=== PATIENT | male | born 1965 | race Caucasian/White ===

== ENCOUNTER 2016-12-13 15:06 | Inpatient (IN) | payer OTHER ==
[~2016-12-13] VITALS: Ht 177.8 cm; Wt 106.8 kg
--- NOTE | 2016-12-13 18:13 | MH ---
cc: JOSE ANGEL BROWN DATE OF ADMISSION 12/22/2016 ADMISSION DIAGNOSIS Severe osteoarthritis of the right knee, varus deformity right knee, patellofemoral disorder right knee, pain right knee. HISTORY The patient is a 51-year-old white male who has had a rather lengthy history of pain involving his right knee. His history extends back almost 20 years when he noted the onset of his symptoms unrelated to trauma or stress. He had undergone previous orthopedic evaluation and over a 10-year interval of time underwent at least four arthroscopic procedures with only temporary relief being noted. He had also received previous cortisone injections that did not prove to be of any long-term benefit. He tried to conform to an exercise program which included riding a bicycle but with the passage of time he became progressively more symptomatic with pain. He had been taking ibuprofen on a daily basis with limited benefit. He initially presented to the undersigned physician in 2011 and at that time his x-ray studies did reveal [id number] apposition about the medial compartment associated with hypertrophic bony reaction involving the medial femoral condyle. Findings and treatment options were reviewed at that time. The patient was encouraged to continue with conservative management being prescribed Ultram to be taken for pain management. He was to be fitted for a medial offloading brace and was initiated into a course of physical therapy while being followed on an outpatient basis. 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 He also completed his course of physical therapy and indicated his intent to postpone any form of operative treatment as long as he was able to tolerate his symptoms. Over the following few years he continued to be followed on an outpatient basis. Subsequently being prescribed tramadol for additional pain management. He returned to the office in August of 2015 reporting some slight progression of his symptoms about his knee, but was not quite ready to commit to any operative treatment. He returned to the office in November of this year indicating that with the passage of time he did become increasingly more symptomatic with pain that began to interfere with all forms of weightbearing activities. He was having difficulty sleeping through the night because of his symptoms and was taking both tramadol and ibuprofen for pain management. He felt that he had reached a point in time where he was ready to consider more definitive course of treatment. His x-ray studies revealed obvious degenerative change with [id number] apposition about the medial compartment associated with a varus deformity of at least 15 degrees magnitude and secondary involvement of the patellofemoral articulation. Findings and treatment options were reviewed. The involvement of total knee arthroplasty was outlined in detail for which the patient indicated his full understanding and expressed his desire to proceed accordingly. In compliance with his wishes he is currently being admitted in order that the above be accomplished. PAST MEDICAL AND SURGICAL HISTORY His past medical history, hospitalizations and surgeries in addition to multiple arthroscopic procedures of his right knee as described have included: 1. An anterior cervical diskectomy and fusion followed by a revision for failure of the fusion. 2. He has also undergone lithotripsy x3. His medical illnesses include: 1. Hypertension for which he takes Toprol XL 100 mg daily, lisinopril 10 - 12.5 daily. 2. He also takes ibuprofen 800 mg twice daily. 3. Tramadol 50 mg p.r.n. 4. Nasonex 80 mcg two sprays daily. 5. A multivitamin tablet daily. 6. Vitamin C 1000 mg daily. 7. Echinacea twice daily. 8. And vitamin B one daily. ALLERGIES The patient denies any known drug allergies. REVIEW OF SYSTEMS His review of systems, he wears glasses for reading purposes. Denies headache, seizure or syncope. He has occasional sinus congestion but no epistaxis. Auditory acuity intact. No tinnitus. No bleeding gums or dysphagia. Denies cough, shortness of breath or tuberculosis. He has had a history of pneumonia. No angina or heart disease. He is medically managed for hypertension. His appetite is good. Bowel movements are regular. No hepatitis, gallbladder disease, ulcers or hemorrhoids. No urinary tract infection. He has had a history of recurrent kidney stones status post lithotripsy. No prostate disease. No history of fractures. He denies history of psychiatric illness. His remaining review of systems is unremarkable and noncontributory. FAMILY HISTORY 14 years, 52 years of age. She has a history of fibromyalgia, chronic fatigue syndrome, Angelica-Molina and status post cervical fusion; otherwise in good health. One son and one daughter indicated to be in good health. Family history is positive for hypertension, diabetes, heart disease and lung cancer. 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 He completed a high school education with college credits thereafter. He denies active use of tobacco for over 14 years but had been at least a one-pack per day user for more than 20 years prior to that time. Ethanol consumption in a social and limited basis. PHYSICAL EXAMINATION VITAL SIGNS: Height 5 feet 10 inches, weight 238 pounds. GENERAL: An alert, oriented and responsive 51-year-old white male who sits quietly upon examination table with no obvious distress. HEAD, EYES, EARS, NOSE, AND THROAT: Pupils are equally round and reactive to light. Extraocular movements full. Sclerae clear. External nares clear. External auditory canals clear. Edentulous in the maxillary distribution. Semi edentulous in the mandibular distribution. Mucous membranes pink and moist. Pharynx clear. NECK: Supple. Active range of motion with no appreciable discomfort. A well-healed surgical wound anteriorly consistent with prior history of surgery. Carotid pulse palpable bilaterally. Trachea midline. Thyroid without enlargement. LUNGS: Clear to auscultation and percussion. No CVA tenderness. No discomfort throughout the dorsal lumbar spine. HEART: Regular rhythm. No murmur or gallop. ABDOMEN: Soft, nontender. Bowel sounds present. RECTAL: Per primary care physician. EXTREMITIES: Right knee there is no obvious swelling or effusion. Medial joint line tenderness without palpable deformity, varus orientation. Apprehension and compression sign negative. Limited mobility in the 100+ degree range of flexion with crepitation elicited. No collateral ligamentous instability. Sourav test and drawer sign negative. Pivot shift and Shu sign positive for medial compartment pain. Straight-leg raising unremarkable at 80 degrees. Satisfactory mobility of the right hip with no associated pain. Antalgic gait. NEUROLOGIC: Cranial nerves II-XII grossly intact. IMPRESSION Severe osteoarthritis right knee, varus deformity right knee, patellofemoral disorder right knee, pain right knee. PLAN Right total knee arthroplasty. The nature of the planned surgical procedure, the potential complications and risks associated, the expectations of surgery and the consent form were thoroughly reviewed with the patient in the presence of his prior to admission to the hospital. Conrad has indicated his full understanding regarding all of the above and given consent to proceed with treatment as outlined. Medical evaluation and clearance for surgery will be completed by his primary care physician Dr. Rodolfo Monsalve. MD PRECIOUS Guzman/JAY /5:21 PM /5:53 PM
[2016-12-14] MEDS ORDERED: IBUP800T23 PO (16:45)
[2016-12-14] MEDS ORDERED: VITA500T4 PO (16:45)
[2016-12-14] MEDS ORDERED: ECHI500C PO (16:45)
[2016-12-14] MEDS ORDERED: LISI10TA PO (16:45)
[2016-12-14] MEDS ORDERED: LACTCAP8 PO (16:45)
[2016-12-14] MEDS ORDERED: MULT-135 PO (16:45)
[2016-12-14] MEDS ORDERED: TRAM50TA PO (16:45)
[2016-12-14] MEDS ORDERED: BECL80AE NASAL (16:45)
[2016-12-14] MEDS ORDERED: TOPR100T PO (16:45)
[2016-12-14] MEDS ORDERED: VITA10007 PO (16:46)
[2016-12-22] MEDS ORDERED: TRANEXAMIC ACID 1 GM POST-OP IV SCH ×2 (07:30)
[2016-12-22] MEDS ORDERED: INSULIN HUMAN REGULAR 1,000 UNITS/10 ML VIAL SQ PRN (07:30)
[2016-12-22] MEDS ORDERED: LACTATED RINGER'S 1000 ML IV PRN (07:30)
[2016-12-22] MEDS: POVIDONE IODINE 7.5% SCRUB 118 ML BOTTLE TOPICAL SCH (07:30)
[2016-12-22] MEDS ORDERED: CHLORHEXIDINE GLUCONATE 2 % 1 PACK (2 CLOTHS) TOPICAL PRN (07:30)
[2016-12-22] MEDS ORDERED: ceFAZolin 2 GM PREMIX 50 ML IV SCH (07:30)
[2016-12-22] MEDS ORDERED: SODIUM CHLORID 0.9% 500 ML IV PRN (07:30)
[2016-12-22] MEDS ORDERED: TRANEXAMIC ACID 1 GM PRIOR TO PROCEDURE IV SCH ×2 (07:30)
[2016-12-22] MEDS ORDERED: METOPROLOL TARTRATE 25 MG TAB PO PRN (07:30)
[2016-12-22] MEDS ORDERED: POVIDONE IODINE 5% (ANTISEPSIS KIT) 4 APPLICATIONS EACH NARE PRN (07:30)
[2016-12-22 08:15] VITALS: BP 134/74; PULSE 72; RESP 16; TEMP 99; O2SAT 98
[2016-12-22] MEDS ORDERED: ceFAZolin INJ 1,000 MG VIAL ONE (09:07)
[2016-12-22] MEDS ORDERED: APREPITANT 40 MG CAP ONE (09:08)
[2016-12-22] MEDS ORDERED: MIDAZOLAM HCL 2 MG/2 ML VIAL ONE ×2 (10:03→12:50)
[2016-12-22] MEDS ORDERED: ePHEDrine/NS 25 MG/5 ML SYR IV ONE (12:00)
[2016-12-22] MEDS ORDERED: PHENYLEPH/NS 1000 MCG/10 ML SYR IV ONE (12:00)
[2016-12-22] MEDS ORDERED: ONDANSETRON HCL 4 MG/2 ML VIAL IV PUSH ONE (12:00)
[2016-12-22] MEDS ORDERED: PROPOFOL 200 MG/20 ML AMP IV ONE (12:00)
[2016-12-22] MEDS ORDERED: DO NOT ADM ANY ANTICOAGULANT DRUGS PRN (12:44)
[2016-12-22] MEDS ORDERED: fentaNYL CITRATE 250 MCG/5 ML AMP ONE (12:50)
[2016-12-22] MEDS: DEXT 5%-NACL 0.45% 1000 ML INJ 1,000 ML IV SCH ×2 (12:55→22:00)
[2016-12-22] MEDS ORDERED: BISACODYL 10 MG SUPP PR PRN (13:00)
[2016-12-22] MEDS ORDERED: ZOLPIDEM TARTRATE 5 MG TAB PO PRN (13:00)
[2016-12-22] MEDS ORDERED: Post-op Orders (for Pharmacy) MISC XX ONE (13:00)
[2016-12-22] MEDS ORDERED: diphenhydrAMINE HCL 25 MG CAP PO PRN (13:00)
[2016-12-22] MEDS ORDERED: TRANEXAMIC ACID INJ 1,000 MG in SODIUM CHLORIDE 0.9% INJ 100 ML IV SCH (13:00)
[2016-12-22] MEDS ORDERED: SODIUM CHLORIDE 0.9% FLUSH 5 ML FLUSH IVF PRN (13:00)
[2016-12-22] MEDS ORDERED: NALOXONE HCL 0.4 MG/ML AMP IV PRN (13:00)
[2016-12-22] MEDS ORDERED: ACETAMINOPHEN/HYDROcodone 325 MG/5 MG TAB PO PRN (13:00)
[2016-12-22] MEDS ORDERED: DOCUSATE SODIUM 100 MG CAP PO PRN (13:00)
[2016-12-22] MEDS ORDERED: ACETAMINOPHEN 325 MG TAB PO PRN (13:00)
[2016-12-22] MEDS ORDERED: *MEPERIDINE 25 MG INJ VIAL PERIprocedural Use ONLY ONE (13:05)
[2016-12-22] MEDS ORDERED: MISCELLANEOUS PHARMACY INFORMATION XX ONE (14:00)
[2016-12-22] MEDS: PCA - TOTAL MG MORPHINE DELIVERED PER SHIFT SCH ×2 (14:00→22:00)
[2016-12-22] MEDS: MORPHINE SULFATE 30 MG/30 ML PCA IV SCH ×2 (14:14→18:42)
[2016-12-22] MEDS ORDERED: *HYDROmorphone PF 1 MG VIAL PERIprocedural Use ONLY ONE (14:19)
--- NOTE | 2016-12-22 14:25 | RADRPT ---
EXAM DATE/TIME: 12/22/2016 14:27 [facility] COMPARISON: No previous studies available for comparison. INDICATIONS : Post-op total right knee arthroplasty. MEDICAL HISTORY : Hypertension. SURGICAL HISTORY : Fusion, cervical. Arthroscopy. ENCOUNTER: Initial ACUITY: 1 day PAIN SCORE: 8/10 LOCATION: Right knee. FINDINGS: AP and lateral views of the knee following arthroplasty reveals a prosthesis in anatomic alignment. F racture is not appreciated. Surgical drain is evident CONCLUSION: Status post total knee arthroplasty. Kenneth Alfaro MD FACR Board Certified Radiologist. This report was verified electronically.
[2016-12-22] MEDS: ACETAMINOPHEN/HYDROcodone 325 MG/5 MG TAB PO PRN (15:00)
[2016-12-22] MEDS ORDERED: ENALAPRILAT 1.25 MG/ML VIAL IV PUSH PRN (17:45)
--- NOTE | 2016-12-22 17:47 | PD.CONS ---
HPI Service [facility] Hospitalists Consult Requested By Dr. Carney Reason for Consult medical management Primary Care Physician Unknown Diagnoses: History of Present Illness Patient is a 51-year-old male with past medical history of hypertension, nephrolithiasis is admitted under the orthopedic surgery service as he is postop day 0 from a right total knee arthroplasty. Patient tells me that she he had severe arthritic osteoarthritis and tried conservative management for many years and finally opted for surgical intervention. Currently pain is controlled. He denies any chest pain, shortness of breath, sore throat or runny nose, nausea vomiting, abdominal pain Hospitalist service was consulted for medical management. Review of Systems Template review of systems negative except for those mentioned in the history of present illness. Past Family Social History Allergies: Coded Allergies: No Known Allergies (Verified , 12/22/16) Past Medical History Hypertension, nephrolithiasis. Past Surgical History Right total knee arthroplasty, 3 lithotripsy, neck surgery Reported Medications Reported Meds & Active Scripts Active Reported Vitamin C (Ascorbic Acid) 1,000 Mg Tab 1,000 Mg PO Probiotic (Lactobacillus Acidophilus) 1 Cap Cap 1 Cap PO DAILY Vitamin B-12 (Cyanocobalamin) 500 Mcg Tab 500 Mcg PO DAILY Echinacea 500 Mg Cap 1,520 Mg PO DAILY Multi Vitamin (Multiple Vitamin) 1 Tab Tab 1 Tab PO DAILY Tramadol (Tramadol HCl) 50 Mg Tab 50 Mg PO Q4H PRN Ibuprofen 800 Mg Tab 800 Mg PO DAILY Qnasl Nasal (Beclomethasone Nasal) 80 Mcg/Act Aero 2 [place] NASAL DAILY To each nostril. Lisinopril-Hctz 10-12.5 Mg Tab 1 Tab PO DAILY Toprol XL (Metoprolol Succinate) 100 Mg Tab 100 Mg PO DAILY Family History Mother has heart valve problems. Father from lung cancer Social History He used to smoke cigarettes for 20+ years however he quit 14 years ago. Denies any illegal drug use. Admits to occasional alcohol intake. Physical Exam Vital Signs Vital Signs Date Time Temp Pulse Resp B/P Pulse Ox O2 Delivery O2 Flow Rate FiO2 12/22/16 14:30 84 16 128/79 97 Nasal Cannula 2 12/22/16 14:14 16 12/22/16 13:30 83 16 123/82 97 Nasal Cannula 2 12/22/16 13:15 85 16 128/77 96 Nasal Cannula 2 12/22/16 13:00 81 16 131/84 98 Nasal Cannula 2 12/22/16 12:45 97.1 81 16 145/77 95 Nasal Cannula 2 12/22/16 08:15 99.0 72 16 134/74 98 Physical Exam GENERAL: This is a well-nourished, well-developed patient, in no apparent distress. SKIN: No rashes, ecchymoses or lesions. Cool and dry. HEAD: Atraumatic. Normocephalic. No temporal or scalp tenderness. EYES: Pupils equal round and reactive. Extraocular motions intact. No scleral icterus. No injection or drainage. ENT: Nose without drainage. Throat without erythema, tonsillar hypertrophy or exudate. Uvula midline. Airway patent. NECK: Trachea midline. No JVD or lymphadenopathy. Supple, nontender, no meningeal signs. CARDIOVASCULAR: Regular rate and rhythm without murmurs. RESPIRATORY: Clear to auscultation. Breath sounds equal bilaterally. No wheezes. GASTROINTESTINAL: Abdomen soft, non-tender, nondistended. No guarding. MUSCULOSKELETAL: Extremities without edema. Splint/dressing over the right knee in place. Drain in place. Patient is able to wiggle his toes, sensation is intact. NEUROLOGICAL: Awake and alert. Cranial nerves II through XII intact. Motor and sensory grossly within normal limits except for the right lower extremity. Normal speech Laboratory Laboratory Tests Test 12/22/16 08:20 Blood Type A POSITIVE Antibody Screen NEGATIVE Blood Bank Comment Imaging Last Impressions Knee X-Ray 12/22/16 1255 Signed Impressions: Service Date/Time: Thursday, December 22, 2016 14:27 - CONCLUSION: Status post total knee arthroplasty. Kenneth Alfaro MD Assessment and Plan Assessment and Plan Right total knee arthroplasty postoperative day 0. Anticoagulation, rehabilitation, antibiotics, pain management per orthopedic surgery. Added miralax/doug-colace prn for bowel regimen. Hypertension: Patient's home medications have been resumed with holding parameters. I'll add Vasotec when necessary for blood pressures greater than 160/90. heart healthy diet Hx of nephrolithiasis: Stable DVT proph: xarelto Thank you for allowing me to take part of 's care, I will continue to follow Code Status full Discussed Condition With patient and family Brittney Ely MD Dec 22, 2016 17:47
[2016-12-22 19:58] VITALS: BP 119/79; PULSE 74; RESP 17; TEMP 96.4; O2SAT 97
[2016-12-22 20:06] VITALS: BP 195/101; PULSE 66; RESP 16; TEMP 98.2; O2SAT 99
[2016-12-22] MEDS: ONDANSETRON HCL 4 MG/2 ML VIAL IVP PRN (20:16)
[2016-12-22] MEDS: SODIUM CHLORIDE 0.9% FLUSH 5 ML FLUSH IVF SCH (20:16)
[2016-12-23] VITALS (7 sets, daily range): BP systolic 124–143; BP diastolic 62–86; PULSE 77–85; RESP 17–20; TEMP 96.9–98.6; O2SAT 94–98
[2016-12-23] MEDS ORDERED: METOCLOPRAMIDE HCL 10 MG/2 ML VIAL IV PUSH ONE
[2016-12-23] MEDS: DEXT 5%-NACL 0.45% 1000 ML INJ 1,000 ML IV SCH ×3 (00:40→21:28)
[2016-12-23 05:17] LABS: HEMATOCRIT 37.4 % (39.0-51.0); REVIEW FLAG FINAL
[2016-12-23] MEDS: MORPHINE SULFATE 30 MG/30 ML PCA IV SCH ×2 (05:44→14:00)
[2016-12-23] MEDS: PCA - TOTAL MG MORPHINE DELIVERED PER SHIFT SCH ×3 (05:44→21:27)
[2016-12-23] MEDS ORDERED: ASPI325T PO (06:20)
[2016-12-23] MEDS ORDERED: HYDR-3516 PO (06:20)
--- NOTE | 2016-12-23 06:21 | HHI.FF ---
Face to Face Verification Diagnosis: (1) DJD (degenerative joint disease) of knee Physical Therapy Gait training Knee: Total knee, Protocol: Right, Full weight bearing Right LE Weight Bearing: WB as tolerated Right LE Range of Motion: Active ROM Nursing Dressing Changes: Daily dressing change I have seen patient Ken Corbin on 12/23/16. My clinical findings support the need for the requested home health care services because: Limited ability to care for self High risk of falls I certify that my clinical findings support that this patient is homebound because: Post-op weakness Unsteady gait/balance Unsafe to leave home unassisted Omar Fairchild MD Dec 23, 2016 06:21
[2016-12-23] MEDS ORDERED: WALKER WHEELS/F1 MIS (06:23)
[2016-12-23] MEDS: POVIDONE IODINE 7.5% SCRUB 118 ML BOTTLE TOPICAL SCH (06:30)
[2016-12-23] MEDS: MAGNESIUM HYDROXIDE SUSP 30 ML CUP PO PRN (07:54)
[2016-12-23] MEDS: METOPROLOL SUCCINATE 50 MG EXTENDED RELEASE TAB PO SCH (07:54)
[2016-12-23] MEDS: DOCUSATE SODIUM 50 MG/SENNA 8.6 MG TAB PO PRN (07:55)
[2016-12-23] MEDS: POLYETHYLENE GLYCOL 17 GM PKG PO SCH (07:57)
[2016-12-23] MEDS: ACETAMINOPHEN/HYDROcodone 325 MG/5 MG TAB PO PRN ×3 (07:57→16:31)
[2016-12-23] MEDS: SODIUM CHLORIDE 0.9% FLUSH 5 ML FLUSH IVF SCH ×2 (07:58→21:00)
[2016-12-23] MEDS ORDERED: LISI10TA3 PO (08:11)
[2016-12-23] MEDS ORDERED: LISINOPRIL 10 MG TAB PO SCH (09:00)
[2016-12-23] MEDS ORDERED: HYDROCHLOROTHIAZIDE 25 MG TAB PO SCH (09:00)
[2016-12-23] MEDS: LISINOPRIL 10 MG TAB PO SCH (09:00)
[2016-12-23] MEDS ORDERED: NON-FORMULARY DRUG (Lisinopril-Hctz 1 TAB) PO SCH (09:00)
[2016-12-23] MEDS: RIVAROXABAN 10 MG TAB PO SCH (12:39)
[2016-12-23] MEDS: ONDANSETRON HCL 4 MG/2 ML VIAL IVP PRN (14:22)
--- NOTE | 2016-12-23 18:18 | HHI.PR ---
Subjective Remarks Patient was evaluated earlier today. Patient was coming back from PT class. Currently having pain and will be getting his pain medication soon. Denies any chest pain, shortness of breath, nausea or vomiting. Objective Vitals Vital Signs Date Time Temp Pulse Resp B/P Pulse Ox O2 Delivery O2 Flow Rate FiO2 12/23/16 16:00 97.9 77 20 143/80 96 12/23/16 14:00 16 12/23/16 12:00 96.9 79 20 133/77 96 12/23/16 10:48 97 12/23/16 08:00 98.5 84 20 124/70 97 12/23/16 05:44 16 12/23/16 05:44 16 12/23/16 04:10 98.0 84 17 131/86 94 12/23/16 00:15 98.3 83 17 124/62 95 12/22/16 19:58 96.4 74 17 119/79 97 12/22/16 19:17 Room Air 12/22/16 18:47 18 12/22/16 18:42 16 I/O 12/22/16 12/22/16 12/22/16 12/23/16 12/23/16 12/23/16 07:00 15:00 23:00 07:00 15:00 23:00 Intake Total 1300 ml 2445 ml 939 ml 720 ml Output Total 150 ml 915 ml 300 ml 970 ml Balance 1150 ml 1530 ml 639 ml -250 ml Intake Oral 490 ml 480 ml 720 ml IV Total 1955 ml 459 ml Other 1300 ml Output Urine Total 650 ml 300 ml 750 ml Drainage Total 50 ml 265 ml 220 ml Estimated Blood Loss 100 ml Other 0 ml # Bowel Movements 0 0 0 Result Diagram: 12/23/16 0456 Imaging Last Impressions Knee X-Ray 12/22/16 1255 Signed Impressions: Service Date/Time: Thursday, December 22, 2016 14:27 - CONCLUSION: Status post total knee arthroplasty. Kenneth Alfaro MD Objective Remarks GENERAL: This is a well-nourished, well-developed patient, in no apparent distress. CARDIOVASCULAR: Regular rate and rhythm without murmurs. RESPIRATORY: Clear to auscultation. Breath sounds equal bilaterally. No wheezes. GASTROINTESTINAL: Abdomen soft, non-tender, nondistended. No guarding. MUSCULOSKELETAL: Extremities without edema. Splint/dressing over the right knee in place. Patient is able to wiggle his toes, sensation is intact. NEUROLOGICAL: Awake and alert. Cranial nerves II through XII intact. Normal speech A/P Assessment and Plan Right total knee arthroplasty postoperative day 1. Anticoagulation, rehabilitation, antibiotics, pain management per orthopedic surgery. on miralax /doug-colace prn for bowel regimen. Hypertension: Patient's home medications have been resumed with holding parameters. Vasotec when necessary for blood pressures greater than 160/90. heart healthy diet Hx of nephrolithiasis: Stable DVT proph: xarelto Discharge Planning Per orthopedic surgery team Brittney Ely MD Dec 23, 2016 18:18
[2016-12-24] VITALS: BP 133/70; PULSE 92; RESP 16; TEMP 98.6; O2SAT 95
[2016-12-24 04:00] VITALS: BP 118/63; PULSE 89; RESP 16; TEMP 98.7; O2SAT 95
[2016-12-24] MEDS: PCA - TOTAL MG MORPHINE DELIVERED PER SHIFT SCH (05:11)
[2016-12-24] MEDS: DEXT 5%-NACL 0.45% 1000 ML INJ 1,000 ML IV SCH ×2 (06:00→11:57)
[2016-12-24] MEDS: MORPHINE SULFATE 30 MG/30 ML PCA IV SCH (06:43)
[2016-12-24] MEDS: POVIDONE IODINE 7.5% SCRUB 118 ML BOTTLE TOPICAL SCH (07:17)
[2016-12-24] MEDS: ONDANSETRON HCL 4 MG/2 ML VIAL IVP PRN (07:50)
[2016-12-24] MEDS: DOCUSATE SODIUM 50 MG/SENNA 8.6 MG TAB PO PRN (07:51)
[2016-12-24] MEDS: METOPROLOL SUCCINATE 50 MG EXTENDED RELEASE TAB PO SCH (07:51)
[2016-12-24] MEDS: LISINOPRIL 10 MG TAB PO SCH (07:51)
[2016-12-24] MEDS: MAGNESIUM HYDROXIDE SUSP 30 ML CUP PO PRN (07:53)
[2016-12-24] MEDS: POLYETHYLENE GLYCOL 17 GM PKG PO SCH (07:53)
[2016-12-24] MEDS: ACETAMINOPHEN/HYDROcodone 325 MG/5 MG TAB PO PRN ×4 (07:53→21:55)
[2016-12-24 08:00] VITALS: BP 121/76; PULSE 78; RESP 16; TEMP 98.3; O2SAT 93
[2016-12-24] MEDS: SODIUM CHLORIDE 0.9% FLUSH 5 ML FLUSH IVF SCH ×2 (09:00→20:59)
[2016-12-24 09:53] VITALS: O2SAT 98
[2016-12-24] MEDS: RIVAROXABAN 10 MG TAB PO SCH (11:57)
[2016-12-24 12:00] VITALS: BP 122/68; PULSE 80; RESP 20; TEMP 97.4; O2SAT 98
--- NOTE | 2016-12-24 12:03 | HHI.PR ---
Subjective Remarks Pt felt lightheaded today after getting up. BP stable. Has been having issues with nausea. No vomiting. Pain is controlled. Objective Vitals Vital Signs Date Time Temp Pulse Resp B/P Pulse Ox O2 Delivery O2 Flow Rate FiO2 12/24/16 09:53 98 21 12/24/16 08:00 98.3 78 16 121/76 93 12/24/16 07:58 Room Air 12/24/16 06:43 16 12/24/16 05:11 16 12/24/16 04:00 98.7 89 16 118/63 95 12/24/16 00:00 98.6 92 16 133/70 95 12/23/16 20:15 98.6 85 20 141/77 98 12/23/16 18:58 Room Air 12/23/16 16:00 97.9 77 20 143/80 96 12/23/16 14:00 16 I/O 12/23/16 12/23/16 12/23/16 12/24/16 12/24/16 12/24/16 07:00 15:00 23:00 07:00 15:00 23:00 Intake Total 939 ml 720 ml 896 ml 713 ml Output Total 300 ml 970 ml 30 ml 700 ml Balance 639 ml -250 ml 866 ml 13 ml Intake Oral 480 ml 720 ml 480 ml 480 ml IV Total 459 ml 416 ml 233 ml Output Urine Total 300 ml 750 ml 650 ml Drainage Total 220 ml 30 ml 50 ml # Voids 1 # Bowel Movements 0 0 0 0 Result Diagram: 12/23/16 0456 Imaging Last Impressions Knee X-Ray 12/22/16 1255 Signed Impressions: Service Date/Time: Thursday, December 22, 2016 14:27 - CONCLUSION: Status post total knee arthroplasty. Kenneth Alfaro MD Objective Remarks GENERAL: This is a well-nourished, well-developed patient, in no apparent distress. CARDIOVASCULAR: Normal rate and regular rhythm without murmurs, gallops, or rubs. RESPIRATORY: Good respiratory efforts. Breath sounds equal and clear to auscultation bilaterally. GASTROINTESTINAL: Abdomen soft, non-tender, non-distended. Normal active bowel sounds MUSCULOSKELETAL: Extremities without cyanosis, or edema. NEURO: Alert & Oriented x4 to person, place, time, situation. Moves all ext x4 PSYCH: Appropriate mood and affect. A/P Assessment and Plan 51-year-old male status post right knee arthroplasty: Right total knee arthroplasty postop day #2. Continue Anticoagulation, rehabilitation, antibiotics, pain management per orthopedic surgery. on miralax /doug-colace prn for bowel regimen. Nausea/lightheadedness: May be related to pain medication. He did better with Reglan. Will add Reglan on an as-needed basis. Discussed side effects of pain medication. We'll continue to monitor. Hypertension: Patient's home medications have been resumed with holding parameters. Vasotec when necessary for blood pressures greater than 160/90. heart healthy diet Hx of nephrolithiasis: Stable DVT proph: xarelto Discharge Planning Probable discharge tomorrow per orthopedics. Stephie Varghese MD Dec 24, 2016 12:03
[2016-12-24] MEDS ORDERED: METOCLOPRAMIDE HCL 10 MG/2 ML VIAL IV PUSH PRN (12:15)
--- NOTE | 2016-12-24 12:21 | MP ---
cc: JOSE ANGEL BROWN DATE OF OPERATION 22 December 2016 PREOPERATIVE DIAGNOSIS Severe osteoarthritis of the right knee with associated varus deformity, patellofemoral disorder and pain of the right knee. POSTOPERATIVE DIAGNOSIS Severe osteoarthritis of the right knee with associated varus deformity, patellofemoral disorder and pain of the right knee. PROCEDURE Right total knee arthroplasty. SURGEON MD Devorah ANESTHESIA General endotracheal. INDICATIONS A 51-year-old white male with a lengthy history of right knee pain extending back almost 20 years when he had originally become symptomatic with pain about the knee unrelated to trauma or stress. He had undergone previous orthopedic evaluation and over a 10-year interval of time completed at least four arthroscopic procedures with only temporary relief being noted. He had received previous cortisone injections that had proved not to be of any long-term benefit and he tried to conform to an exercise program including riding a bicycle but with the passage of time he became progressively more symptomatic with pain. He had been taking ibuprofen on a daily basis with limited benefit. He initially presented to the undersigned physician in 2011 and at that time his x-ray studies reveal [id number] apposition about the medial compartment associated with hypertrophy and bony reaction involving the medial femoral condyle. The findings and treatment options were reviewed. The patient was encouraged to continue with conservative management, being prescribed Ultram to be taken for pain relief. He was fitted with a medial offloading brace and was initiated into a course of physical therapy while being followed on an outpatient basis. 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 He continued to conform to conservative modalities being seen intermittently over the following years. He completed his course of physical therapy with his intent to postpone any form of operative treatment as long as he was able to tolerate his symptoms. With the passage of time, however, became progressively more symptomatic with pain requiring tramadol for pain relief. He returned to the office in August of 2015 reporting slight progression of his symptoms but was not ready to commit to operative treatment. He returned to the office in November of this year indicating that with the passage of time he had become significantly more symptomatic with pain that began to interfere with all weightbearing activities as well as having difficulty sleeping through the night. His x-ray studies revealed significant degenerative change with [id number] apposition about the medial compartment associated with a varus deformity of at least 15 degrees magnitude and secondary involvement of the patellofemoral articulation. Findings and treatment options were again reviewed. The involvement of total knee arthroplasty was outlined in detail with emphasis being made that the decision to proceed with surgery would be left entirely to the patient's discretion. He readily admitted that his symptoms had progressed to a point in time where he was ready to proceed in this direction and in compliance with his wishes he was scheduled for admission at this time in order that the above be accomplished. FORMAT Following the induction of satisfactory general anesthesia by endotracheal intubation as completed per the Department of Anesthesia, a tourniquet was established around the proximal portion of the right lower extremity. The extremity proper was isolated with a U drape, thereafter being prepped with Betadine solution and draped into a sterile field in the routine manner. Prior to initiation of the actual procedure the standard time-out protocol was completed. All parameters were appropriately addressed and confirmed by operating room personnel. The extremity was elevated for approximately 1 minute and the tourniquet thus inflated to 250 mmHg pressure. A sharp skin incision was initiated midline over the anterior aspect of the knee and developed through underlying subcutaneous tissue with hemostasis maintained by electrocautery. By deepening dissection, the anterior capsule was exposed, a medial capsulotomy completed and the patella subluxed in a lateral orientation. Examination of the joint space revealed tricompartmental degenerative changes being most pronounced about the medial compartment where there was complete erosion of articular cartilage and underlying subchondral bone exposed about both femoral condyle and tibial plateau. Medial and lateral meniscus structures were excised as was the anterior cruciate ligament. The articular surface of the patella was resected with power saw. The three holed guide was utilized for establishing post holes. A centering hole was placed in the distal aspect of the femur allowing positioning of the intramedullary guide. The distal femoral cutting jig was attached and the distal femur resected. AP measurement noted 67.5-mm sizing to be appropriate. The matching cutting block was attached. Anterior, posterior and chamfer cuts were completed. The tibial plateau was thereafter subluxed in an anterior orientation allowing positioning of the extramedullary guide. The tibial plateau was resected and measured with 83-mm sizing determined to be satisfactory. A trial reduction followed utilizing a 67.5-mm anatomic femoral component, an 83-mm tibial base with both 10 and 12-mm bearing inserts trialed. The 12-mm thickness was determined to be the more favorable fit. The knee was readily brought to full extension. There was no laxity due to varus or valgus stress at both 0 and 90 degrees flexed posture. Orientation was confirmed as appropriate with measurement of the pelvic guide through the mechanical axis of the knee. A trial reduction followed utilizing a 34-mm standard patellar button. Once again good tracking was demonstrated with no tendency toward subluxation. All trial components being removed, the remaining portion of the proximal tibia was prepared for insertion of the permanent component. The joint space was thoroughly lavaged with pulsating antibiotic solution, hemostasis maintained by electrocautery. An autogenous bone plug was inserted into the distal femoral guide hole and thereafter a preparation of cobalt bone cement was utilized inserting knee components in a sequential fashion which included an 83-mm fixed cruciate tibial plate to which a 12-mm Vanguard tibial bearing insert was secured with locking thomas. The 67.5-mm Vanguard femoral component was firmly seated onto the distal femur. Excess cement being removed, the knee was brought to full extension and thereafter the 34-mm standard three-post patellar button was attached and maintained in place with patellar clamp while cement hardening was completed. Final range of motion assessment noted good tracking stability throughout the knee. Irrigation was repeated with hemostasis maintained. Autovac drain tubes were inserted through superior stab wounds. The capsule was repaired with 0 Vicryl suture. The remaining portion of the wound was closed in layers in the routine manner, skin margins being reapproximated with a running subcuticular 3-0 Vicryl suture over which Steri-Strips were applied. Xeroform gauze and a bulky dry sterile dressing were placed. The tourniquet was deflated after 51 minutes of tourniquet time, the extremity being supported in a canvas knee splint. Anesthesia was discontinued and the patient thus transferred to a hospital bed and returned to the recovery room in satisfactory condition having tolerated his operative procedure well. Estimated blood loss was approximately 100 cc. All implants were of the [employer] shell[employer]er. MD PRECIOUS Guzman/VANGIE /12:46 PM /11:56 AM
[2016-12-24 20:55] VITALS: BP 129/75; PULSE 88; RESP 17; TEMP 98.5; O2SAT 98
[2016-12-25] VITALS: BP 127/71; PULSE 88; RESP 16; TEMP 98.6; O2SAT 97
[2016-12-25] MEDS: ACETAMINOPHEN/HYDROcodone 325 MG/5 MG TAB PO PRN ×3 (02:15→10:43)
[2016-12-25 04:00] VITALS: BP 131/74; PULSE 87; RESP 18; TEMP 97.7; O2SAT 98
[2016-12-25 07:14] VITALS: BP 133/66; PULSE 91; RESP 16; TEMP 97.8; O2SAT 97
[2016-12-25] MEDS: SODIUM CHLORIDE 0.9% FLUSH 5 ML FLUSH IVF SCH (09:00)
[2016-12-25] MEDS: METOPROLOL SUCCINATE 50 MG EXTENDED RELEASE TAB PO SCH (09:07)
[2016-12-25] MEDS: LISINOPRIL 10 MG TAB PO SCH (09:07)
[2016-12-25] MEDS: POLYETHYLENE GLYCOL 17 GM PKG PO SCH (09:08)
--- NOTE | 2016-12-25 09:52 | HHI.PR ---
Subjective Remarks Patient reports feeling much better. No more lightheadedness. Pain is controlled. Feels good to go home. Objective Vitals Vital Signs Date Time Temp Pulse Resp B/P Pulse Ox O2 Delivery O2 Flow Rate FiO2 12/25/16 07:14 97.8 91 16 133/66 97 12/25/16 04:00 97.7 87 18 131/74 98 12/25/16 00:00 98.6 88 16 127/71 97 12/24/16 20:55 98.5 88 17 129/75 98 12/24/16 12:00 97.4 80 20 122/68 98 12/24/16 09:53 98 21 I/O 12/24/16 12/24/16 12/24/16 12/25/16 12/25/16 12/25/16 07:00 15:00 23:00 07:00 15:00 23:00 Intake Total 713 ml 240 ml 480 ml Output Total 700 ml 940 ml Balance 13 ml 240 ml -460 ml Intake Oral 480 ml 240 ml 480 ml IV Total 233 ml Output Urine Total 650 ml 940 ml Drainage Total 50 ml # Voids 1 3 # Bowel Movements 0 2 0 Result Diagram: 12/23/16 0456 Objective Remarks GENERAL: This is a well-nourished, well-developed patient, in no apparent distress. CARDIOVASCULAR: Normal rate and regular rhythm without murmurs, gallops, or rubs. RESPIRATORY: Good respiratory efforts. Breath sounds equal and clear to auscultation bilaterally. GASTROINTESTINAL: Abdomen soft, non-tender, non-distended. Normal active bowel sounds MUSCULOSKELETAL: Extremities without cyanosis, or edema. NEURO: Alert & Oriented x4 to person, place, time, situation. Moves all ext x4 PSYCH: Appropriate mood and affect. A/P Assessment and Plan 51-year-old male status post right knee arthroplasty: Right total knee arthroplasty postop day #3. Continue Anticoagulation, rehabilitation, antibiotics, pain management per orthopedic surgery. on miralax /doug-colace prn for bowel regimen. Discharge with home health. Nausea/lightheadedness: Resolved. This was likely related to morphine. Hypertension: Patient's home medications have been resumed with holding parameters. Vasotec when necessary for blood pressures greater than 160/90. heart healthy diet Hx of nephrolithiasis: Stable DVT proph: xarelto Discharge Planning Hospitalist clear for discharge Stephie Varghese MD Dec 25, 2016 09:52
[2016-12-25 11:50] VITALS: BP 131/68; PULSE 82; RESP 16; TEMP 97; O2SAT 97
[2016-12-25] MEDS: RIVAROXABAN 10 MG TAB PO SCH (12:20)
--- NOTE | 2016-12-28 22:24 | MD ---
cc: ISHMAEL CANALES M.D., NORMAN B. M.D. ADMISSION DATE: 12/22/2016 DISCHARGE DATE: 12/25/2016 ADMISSION DIAGNOSIS Severe osteoarthritis of the right knee, varus deformity right knee, patellofemoral disorder right knee, pain right knee. DISCHARGE DIAGNOSIS Severe osteoarthritis of the right knee, varus deformity right knee, patellofemoral disorder right knee, pain right knee. HISTORY OF THE PRESENT ILLNESS A 51-year-old white male with a lengthy history of right knee pain extending back at least 20 years when the patient noted the onset of his symptoms unrelated to trauma or stress. He had undergone previous orthopedic evaluation in over a 10 year interval of time underwent at least four arthroscopic procedures with only temporary relief being noted. He had received previous cortisone injections that did not prove to be of any long-term benefit and tried to conform to an exercise program which included riding a bicycle. With the passage of time he became progressively more symptomatic with pain for which he had been taking ibuprofen on a daily basis. He presented to the undersigned physician initially in 2011 and at that time his x-ray studies did reveal [id number] apposition about the medial compartment associated with hypertrophic bony reaction involving the medial femoral condyle. Findings and treatment options were reviewed with the patient at that time. Initially he was encouraged to continue with conservative management being prescribed Ultram to be taken for pain management. He was fitted with a medial offloading brace and was initiated into physical therapy while being followed on outpatient basis. 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 He completed his physical therapy and tried to postpone any aggressive intervention thereafter. Over the following years he continued to be followed on an outpatient basis being prescribed tramadol for additional pain management. He returned to the office on several occasions reporting progression of pain about his knee but not quite ready to commit to operative treatment. In November of this year he was seen in follow-up disposition indicating that he had become increasingly more symptomatic with pain that began to interfere with all weightbearing activities. He was having difficulty sleeping through the night and was taking both tramadol and ibuprofen for pain management. His x-ray studies revealed obvious degenerative changes with [id number] apposition about the medial compartment associated with a varus deformity of at least 15 degrees magnitude and secondary involvement of the patellofemoral articulation. Findings and treatment options were again reviewed. The involvement of total knee arthroplasty was outlined in detail with emphasis being made that the decision to proceed with surgery would be left entirely to the patient's discretion. He readily admitted that he had reached that point in time and was ready to undergo such treatment and in compliance with his wishes he was scheduled for admission in order that the above be accomplished. His physical examination of time admission revealed no obvious swelling or effusion about the right knee. There was medial joint line tenderness without palpable deformity, varus orientation. Apprehension and compression sign negative. Limited mobility in the 100 degree range of flexion with crepitation elicited. No collateral ligamentous instability. Sourav test and drawer sign negative. Pivot shift and Shu sign positive for medial compartment pain. Straight-leg raising unremarkable at 80 degrees. Satisfactory mobility of the right hip with no associated pain. Antalgic gait. HOSPITAL COURSE Prior to admission to the hospital the patient had undergone medical evaluation and clearance for surgery as completed by his primary care physician Dr. Ishmael Canales. He was taken to the operating room on 22 December 2016 and on that date underwent a right total knee arthroplasty completed in an uncomplicated manner. The patient was noted to have tolerated his operative procedure well and his postoperative course stable thereafter. Hemoglobin/hematocrit assessment postoperatively was 12.2 and 37.4, respectively. The patient was progressively mobilized under guidance of physical therapy being permitted weightbearing to tolerance about the right lower extremity. Follow up examination of his surgical wound noted to be intact, healing favorably, no evidence of infection. Medical followup per the hospitalist service. DVT prophylaxis initiated. nursing surgical services director consulted to assist with discharge planning. The patient indicated his desire to be discharged home and continue his rehabilitation on outpatient basis. Plans were finalized in this regard and pending medical clearance he was scheduled for discharge on the third postoperative day at which time he was noted to be making steady progress with regards to his rehab program. He was scheduled be seen in office followup in approximately 4 weeks. His condition at the time of discharge stable. Prognosis favorable. DISCHARGE MEDICATIONS 1. Hydrocodone 5/325, #60. 2. Aspirin 325 mg 1 tablet twice daily for 3 weeks, #40. Omar B. Avoca, MD NBS/KK /7:21 AM /10:14 PM
== END 2016-12-25 13:52 | disposition home health service (06) | DRG 470 ==
LOC: HSDI 12-22 06:26 → N06B 12-22 18:12
PROVIDERS: ADMIT Orthopaedic Surgery; ATTEND Orthopaedic Surgery
PROC: 0SRC0J9 Replacement of Right Knee Joint with Synthetic Substitute, Cemented, Open Approach (ICD-10-PCS; principal; 2016-12-22 10:06)
DX: M17.11 Unilateral primary osteoarthritis, right knee (principal); I10 Essential (primary) hypertension; M21.161 Varus deformity, not elsewhere classified, right knee; Z79.01 Long term (current) use of anticoagulants; Z87.442 Personal history of urinary calculi; Z87.891 Personal history of nicotine dependence
CPT/HCPCS: 73560; 85014; 85018; 86850; 86891; 86900; 86901; 88305; 88311; 94150; C1776; J0690; J1170; J2175; J2250; J2270; J2370; J2405; J2765; J3010; J8501; L1830

== ENCOUNTER → 2016-12-14 | Outpatient (CLI) | payer OTHER ==
[~2016-12-14] MED LIST: ASPI325T PO; BECL80AE; BECL80AE NASAL; ECHI500C PO; HYDR-3516 PO; IBUP800T23 PO; LACTCAP8 PO; LISI-360 PO; LISI10TA PO; LISI10TA3 PO; MULT-135 PO; TAB-TAB PO; TOPR100T PO; TOPR200T PO; TRAM100T19 PO; TRAM50TA PO; VITA10007 PO; VITA500T4 PO; WALKER WHEELS/F1 MIS
== END ==
LOC: CPRE 04:15
PROVIDERS: ATTEND Orthopaedic Surgery
DX: M17.11 Unilateral primary osteoarthritis, right knee (principal)